=== PATIENT | female | born 1940 | race Caucasian/White ===

== ENCOUNTER 2022-02-13 10:45 | Outpatient (RCR) | payer MEDICARE, SELFPAY | END 2022-10-22 23:59 | disposition home or self-care (01) | PROVIDERS: PCP Physician Assistant; Visit Provider Physician Assistant | DX: R41.3 Other amnesia (principal); Z51.89 Encounter for other specified aftercare | CPT/HCPCS: 97165; 97535 ==

== ENCOUNTER 2022-04-20 09:57 | Emergency (ER) | payer MEDICARE, SELFPAY ==
[2022-04-20] VITALS (20 sets, daily range): BP systolic 97–137; BP diastolic 36–84; PULSE 72–122; RESP 18; TEMP 36.4; O2SAT 93–99; BMI 34.5
[2022-04-20 11:08] LABS: PCR FLU A Negative PCR FLU A (Negative); PCR FLU B Negative PCR FLU B (Negative); PCR RSV Negative PCR RSV (Negative)
[2022-04-20 11:11] LABS: SARS PCR* Negative SARS-CoV-2 (Negative)
[2022-04-20 11:20] LABS: Lactate* 1.2 mmol/L (0.5-1.9)
[2022-04-20 11:25] LABS: Basophils Absolute Auto 0.05 K/uL (0.00-0.30); Basophils Percent Auto 0.5 % (0.0-3.0); Eosinophils Absolute Auto 0.05 K/uL (0.00-0.50); Eosinophils Percent Auto 0.5 % (0.0-7.0); Hematocrit 39.3 % (33.0-51.0); Immature Granulocytes Abs Auto 0.02 K/uL (0.00-0.30); Immature Granulocytes Pct Auto 0.2 %; Lymphocytes Percent Auto 14.1 % (20-44); Mean Corpuscular HGB Conc 33 gm/dL (32-36); Mean Corpuscular Hemoglobin 30 pg (26-34); Mean Corpuscular Volume 90 fL (80-100); Monocytes Percent Auto 9.7 % (0.0-11.0); Platelet Count* 279 K/uL (140-440); RDW Coefficient of Variation % 11.8 % (11.5-15.5); Red Blood Count 4.36 m/uL (4.00-5.20); Slide Review Reflex No; White Blood Count* 9.58 K/uL (4.50-11.00)
[2022-04-20] MEDS: 0.9 % SODIUM CHLORIDE 1000 ml 1,000 ML IV ×2 (11:32→13:23)
[2022-04-20] MEDS: ACETAMINOPHEN 500 MG TABLET 1000 MG PO (11:32)
[2022-04-20] MEDS: LORazepam 2 MG/ML inj 1 MG IVP (11:34)
[2022-04-20 11:40] LABS: Albumin* 4.1 g/dL (3.3-5.0)
[2022-04-20 11:41] LABS: Chloride* 102 mmol/L (96-114); Potassium* 4.1 mmol/L (3.6-5.1); Sodium* 134 mmol/L (135-149)
[2022-04-20 11:43] LABS: Bilirubin Direct* 0.3 mg/dL (0.0-0.5); Bilirubin Total* 0.7 mg/dL (0.1-1.5); Magnesium* 1.9 mg/dL (1.5-2.6); Total Protein* 7.7 g/dL (6.0-8.3)
[2022-04-20 11:44] LABS: Alanine Aminotransferase* 21 U/L (4-35); Alkaline Phosphatase* 95 U/L (40-150); Aspartate Amino Transferase* 27 U/L (12-35); Creatinine* 1.2 mg/dL (0.5-1.5); Est. Creatinine Clearance* 31.45; Estimated Glomerular Filt Rate 46 ml/min
[2022-04-20 11:45] LABS: Blood Urea Nitrogen* 21 mg/dL (7-30); Calcium* 9.8 mg/dL (8.4-10.6); Carbon Dioxide* 26 mmol/L (20-32); Glucose* 98 mg/dL (60-115)
[2022-04-20 11:48] LABS: C Reactive Protein* 4.9 mg/dL (0.5-1.0)
[2022-04-20 15:06] LABS: Appearance Urine Slightly Cloudy (Clear); Bilirubin Urine Negative (Negative); Blood Urine 1+ (Negative); Color Urine Dark yellow (Yellow); Glucose Urine Negative (Negative); Ketones Urine Negative (Negative); Leukocyte Esterase Urine 1+ (Negative); Nitrite Urine Negative (Negative); Protein Urine 1+ (Negative); Urobilinogen Urine 0.2 (0.2-1.0); pH Urine 6.5 (5.0-8.5)
--- NOTE | 2022-04-20 15:14 | ED.GENADULT ---
HPI - General Adult General Date Seen: 04/20/22 Chief complaint: Weakness Stated complaint: Fever, aching for a week Time Seen by Provider: 04/20/22 10:30 Source: patient and family History of Present Illness HPI narrative: Patient is a 81-year-old who presents for evaluation of weakness. She says that a little over week ago she had an illness which involved nonbloody diarrhea multiple times a day for a few days. She had some mild abdominal pain at the same time which has now resolved. The diarrhea is gone as well. She had nausea but no vomiting. She just can not recover however. She feels extremely fatigued and has hard time even holding her head up. She has been trying to keep up with fluids but has found that difficult to do. She lives independently but says that she just felt too weak to function and that seems to be getting worse rather than better. This morning she says she woke up with her back feeling kind of sweaty and think she may have had a fever although she did not check her temperature. She has not had urinary symptoms, she has not had chest pain or difficulty breathing, no cough. No upper respiratory symptoms. She does have chronic back pain and says that our bed is very uncomfortable so that is bothering her quite a bit right now. Describes her health as otherwise good. Related Data Home Medications Medication Instructions Recorded Confirmed amlodipine 5 mg tablet 5 mg PO DAILY 04/20/22 04/20/22 cyclobenzaprine 5 mg tablet 5 mg PO HS PRN 04/20/22 04/20/22 gabapentin 300 mg capsule 600 mg PO BID 04/20/22 04/20/22 lisinopril 40 mg tablet 40 mg PO DAILY 04/20/22 04/20/22 pantoprazole 40 mg tablet,delayed 40 mg PO DAILY 04/20/22 04/20/22 release Allergies Allergy/AdvReac Type Severity Reaction Status Date / Time No Known Drug Allergies Allergy Verified 04/20/22 10:09 Review of Systems Status of ROS: Reports: 10 or more systems reviewed and unremarkable except as noted in History and below [facility] Social History Smoking Status: Never smoker Do you use any of these nicotine containing products: None Second hand tobacco smoke exposure: No How often do you have a drink containing alcohol: monthly or less How many standard drinks containing alcohol do you have on a typical day: 1 or 2 How often do you have six or more drinks on one occasion: Never AUDIT-C Alcohol total score: 1 Non-prescribed substance use: denies use Exam Narrative: Exam Narrative: Vital signs as noted above. In general, an alert, nontoxic elderly woman. She keeps her eyes closed throughout our conversation. Head: Normocephalic, atraumatic. Eyes: Pupils are equal reactive. Extraocular movements are full. Conjunctivae are normal. No scleral icterus. ENT: Mucous membranes are slightly dry. Throat is normal. Neck: Supple without lymphadenopathy. Heart: Tachycardic and regular. No murmur. Lungs: Clear bilaterally. No increased work of breathing, crackles or wheezes. Abdomen: Soft and nontender. No organomegaly. Extremities: Well perfused. No edema. No calf tenderness. Pulses intact. Neurologic: Patient is alert and oriented to person and place. Speech is fluent. Face is symmetric. Moves all extremities equally. Affect: Normal. Skin: Warm and dry. Well perfused. Const: Vital Signs, click to edit/add: Vital Signs - 24 hr 04/20/22 10:05 04/20/22 11:10 04/20/22 11:06 Temperature 97.5 F L Pulse Rate Pulse Rate [Right Pulse Oximeter] 122 H Respiratory Rate 18 Blood Pressure 97/36 L Blood Pressure [Ri ght Upper Arm] 137/84 Pulse Oximetry 95 95 99 [facility] 04/20/22 11:30 04/20/22 12:02 04/20/22 12:32 Temperature Pulse Rate 72 80 73 Pulse Rate [Right Pulse Oximeter] Respiratory Rate Blood Pressure 114/66 117/67 111/63 Blood Pressure [Ri ght Upper Arm] Pulse Oximetry 93 95 95 Oxygen Delivery Al thod 04/20/22 12:33 04/20/22 13:00 04/20/22 13:02 Temperature Pulse Rate 109 H 73 76 Pulse Rate [Right Pulse Oximeter] Respiratory Rate Blood Pressure 97/67 Blood Pressure [Ri ght Upper Arm] Pulse Oximetry 95 96 94 Oxygen Delivery Al thod 04/20/22 13:30 04/20/22 13:31 04/20/22 14:00 Temperature Pulse Rate 81 81 76 Pulse Rate [Right Pulse Oximeter] Respiratory Rate Blood Pressure 115/69 Blood Pressure [Ri ght Upper Arm] Pulse Oximetry 97 95 97 Oxygen Delivery Me thod 04/20/22 14:01 04/20/22 14:28 Temperature Pulse Rate 75 Pulse Rate [Right Pulse Oximeter] Respiratory Rate 18 Blood Pressure 115/67 125/76 Blood Pressure [Ri ght Upper Arm] Pulse Oximetry 96 95 Oxygen Delivery Me thod Room Air Course Course Hospital Course: We placed an IV here and gave her a L of saline. She requested a muscle relaxer for her back, I did give her some Tylenol and also give her a little Ativan. She rested quietly after that, seemed more comfortable. Her labs showed a normal white blood cell count and hemoglobin, slight left shift with 75% neutrophils, 14% lymphocytes. No significant eosinophils. Sodium was 134, potassium 4.1. Other electrolytes normal, BUN 21 and creatinine 1.2. Glucose was 98. Lactate was 1.2. Magnesium was normal. LFTs were entirely normal. CRP was mildly elevated at 4.9. TSH was normal. It took a while to get a UA. In the meantime, after her 1 L of fluid she continued to be mildly tachycardic with a heart rate of 109. She was having a little bit of fatigue still when she was ambulatory, and so we did give her a 2 L of fluid. Differential diagnosis included metabolic derangement, acidosis, dehydration, diverticulitis, infectious or ischemic colitis, myocardial infarction, pneumonia, urinary tract infection, COVID or other viral infection. Overall, I think these are all unlikely. Viral swab is negative. She does not have any ongoing abdominal pain or tenderness. Lungs are clear. White count is normal. She is not hypoxic. Troponin is 0. She does ultimately have 5-10 red cells and 10-25 white blood cells in her urine, in the absence of any squamous cells. She is not complaining of any urinary symptoms however, is not febrile and has a normal white blood cell count. I think for now, will await culture. In the meantime, she is feeling improved after the 2 L, she is ambulatory without difficulty, heart rate is down to 75. I do think symptoms are likely related to dehydration, she is feeling eager to go home which I think is reasonable. If she develops new or worsening symptoms, fevers, vomiting, significant abdominal or chest pain, she should return. Otherwise, will await urine culture, continue to work on hydration, and primary care follow-up if not continuing to improve. Vital Signs Vital signs: Initial Vital Signs Temperature 97.5 F L 04/20/22 10:05 Temperature Source Oral 04/20/22 10:05 Pulse Rate 122 H 04/20/22 10:05 Pulse Rhythm 04/20/22 10:05 Pulse Strength 3+ Normal 04/20/22 10:05 Respiratory Rate 18 04/20/22 10:05 Blood Pressure 137/84 04/20/22 10:05 Blood Pressure Mean 101 04/20/22 10:05 Blood Pressure Position Sitting 04/20/22 10:05 Pulse Oximetry 95 04/20/22 10:05 Oxygen Delivery Method 04/20/22 10:05 Vital Signs Temperature 97.5 F L 04/20/22 10:05 Pulse Rate 122 H 04/20/22 10:05 Respiratory Rate 18 04/20/22 10:05 Blood Pressure 137/84 04/20/22 10:05 Pulse Oximetry 95 04/20/22 10:05 Oxygen Delivery Method 04/20/22 10:05 Temperature 97.5 F L 04/20/22 10:05 Pulse Rate 75 04/20/22 14:01 Respiratory Rate 18 04/20/22 14:28 Blood Pressure 125/76 04/20/22 14:28 Pulse Oximetry 95 04/20/22 14:28 Oxygen Delivery Method 04/20/22 14:28 Medical Decision Making Lab Data Labs: Lab Results 04/20/22 04/20/22 04/20/22 Range/Units 10:15 11:10 11:10 WBC 9.58 (4.50-11.00) K/uL RBC 4.36 (4.00-5.20) m/uL Hgb 13.0 (12.0-16.0) gm/dL Hct 39.3 (33.0-51.0) % MCV 90 (80-100) fL MCH 30 (26-34) pg MCHC 33 (32-36) gm/dL RDW Coeff of Anais 11.8 (11.5-15.5) % Plt Count 279 (140-440) K/uL Neut % (Auto) 75.0 H (42.0-72.0) % Lymph % (Auto) 14.1 L (20-44) % [place] % (Auto) 9.7 (0.0-11.0) % Eos % (Auto) 0.5 (0.0-7.0) % Baso % (Auto) 0.5 (0.0-3.0) % Neut # (Auto) 7.20 H (1.7-7.0) K/uL Lymph # (Auto) 1.40 (0.90-2.90) K/uL [place] # (Auto) 0.90 (0.00-0.90) K/UL Eos # (Auto) 0.05 (0.00-0.50) K/uL Baso # (Auto) 0.05 (0.00-0.30) K/uL Sodium 134 L (135-149) mmol/L Potassium 4.1 (3.6-5.1) mmol/L Chloride 102 (96-114) mmol/L Carbon Dioxide 26 (20-32) mmol/L BUN 21 (7-30) mg/dL Creatinine 1.2 (0.5-1.5) mg/dL Estimated Creat Clear 31.45 Estimated GFR 46 ml/min Glucose 98 (60-115) mg/dL Lactate (0.5-1.9) mmol/L Calcium 9.8 (8.4-10.6) mg/dL Magnesium (1.5-2.6) mg/dL Total Bilirubin (0.1-1.5) mg/dL Direct Bilirubin (0.0-0.5) mg/dL AST (12-35) U/L ALT (4-35) U/L Alkaline Phosphatase (40-150) U/L C-Reactive Protein 4.9 H (0.5-1.0) mg/dL Total Protein (6.0-8.3) g/dL Albumin (3.3-5.0) g/dL TSH (0.270-4.200) uIU/mL Urine Color (Yellow) Urine Appearance (Clear) Urine pH (5.0-8.5) Ur Specific [place] (1.000-1.030) Urine Protein (Negative) Urine Glucose (UA) (Negative) Urine Ketones (Negative) Urine Blood (Negative) Urine Nitrite (Negative) Urine Bilirubin (Negative) Urine Urobilinogen (0.2-1.0) Ur Leukocyte Esterase (Negative) Urine RBC (0-2) Urine WBC (0-5) Ur Squamous Epith Cells (None-Few) Urine Bacteria (None) SARS-CoV-2 (PCR) Negative SARS-CoV-2 (Negative) Influenza Type A (PCR) Negative PCR FLU A (Negative) Influenza Type B (PCR) Negative PCR FLU B (Negative) RSV (PCR) Negative PCR RSV (Negative) POC Troponin I (0.01-0.04) ng/ml 04/20/22 04/20/22 04/20/22 Range/Units 11:10 11:10 11:10 WBC (4.50-11.00) K/uL RBC (4.00-5.20) m/uL Hgb (12.0-16.0) gm/dL Hct (33.0-51.0) % MCV (80-100) fL MCH (26-34) pg MCHC (32-36) gm/dL RDW Coeff of Anais (11.5-15.5) % Plt Count (140-440) K/uL Neut % (Auto) (42.0-72.0) % Lymph % (Auto) (20-44) % [place] % (Auto) (0.0-11.0) % Eos % (Auto) (0.0-7.0) % Baso % (Auto) (0.0-3.0) % Neut # (Auto) (1.7-7.0) K/uL Lymph # (Auto) (0.90-2.90) K/uL [place] # (Auto) (0.00-0.90) K/UL Eos # (Auto) (0.00-0.50) K/uL Baso # (Auto) (0.00-0.30) K/uL Sodium (135-149) mmol/L Potassium (3.6-5.1) mmol/L Chloride (96-114) mmol/L Carbon Dioxide (20-32) mmol/L BUN (7-30) mg/dL Creatinine (0.5-1.5) mg/dL Estimated Creat Clear Estimated GFR ml/min Glucose (60-115) mg/dL Lactate 1.2 (0.5-1.9) mmol/L Calcium (8.4-10.6) mg/dL Magnesium 1.9 (1.5-2.6) mg/dL Total Bilirubin 0.7 (0.1-1.5) mg/dL Direct Bilirubin 0.3 (0.0-0.5) mg/dL AST 27 (12-35) U/L ALT 21 (4-35) U/L Alkaline Phosphatase 95 (40-150) U/L C-Reactive Protein (0.5-1.0) mg/dL Total Protein 7.7 (6.0-8.3) g/dL Albumin 4.1 (3.3-5.0) g/dL TSH (0.270-4.200) uIU/mL Urine Color Dark yellow (Yellow) Urine Appearance Slightly Cloudy A (Clear) Urine pH 6.5 (5.0-8.5) Ur Specific [place] 1.010 (1.000-1.030) Urine Protein 1+ A (Negative) Urine Glucose (UA) Negative (Negative) Urine Ketones Negative (Negative) Urine Blood 1+ A (Negative) Urine Nitrite Negative (Negative) Urine Bilirubin Negative (Negative) Urine Urobilinogen 0.2 (0.2-1.0) Ur Leukocyte Esterase 1+ A (Negative) Urine RBC 5-10 A (0-2) Urine WBC 10-25 A (0-5) Ur Squamous Epith Cells None (None-Few) Urine Bacteria None (None) SARS-CoV-2 (PCR) (Negative) Influenza Type A (PCR) (Negative) Influenza Type B (PCR) (Negative) RSV (PCR) (Negative) POC Troponin I (0.01-0.04) ng/ml 04/20/22 04/20/22 Range/Units 11:10 11:10 WBC (4.50-11.00) K/uL RBC (4.00-5.20) m/uL Hgb (12.0-16.0) gm/dL Hct (33.0-51.0) % MCV (80-100) fL MCH (26-34) pg MCHC (32-36) gm/dL RDW Coeff of Anais (11.5-15.5) % Plt Count (140-440) K/uL Neut % (Auto) (42.0-72.0) % Lymph % (Auto) (20-44) % [place] % (Auto) (0.0-11.0) % Eos % (Auto) (0.0-7.0) % Baso % (Auto) (0.0-3.0) % Neut # (Auto) (1.7-7.0) K/uL Lymph # (Auto) (0.90-2.90) K/uL [place] # (Auto) (0.00-0.90) K/UL Eos # (Auto) (0.00-0.50) K/uL Baso # (Auto) (0.00-0.30) K/uL Sodium (135-149) mmol/L Potassium (3.6-5.1) mmol/L Chloride (96-114) mmol/L Carbon Dioxide (20-32) mmol/L BUN (7-30) mg/dL Creatinine (0.5-1.5) mg/dL Estimated Creat Clear Estimated GFR ml/min Glucose (60-115) mg/dL Lactate (0.5-1.9) mmol/L Calcium (8.4-10.6) mg/dL Magnesium (1.5-2.6) mg/dL Total Bilirubin (0.1-1.5) mg/dL Direct Bilirubin (0.0-0.5) mg/dL AST (12-35) U/L ALT (4-35) U/L Alkaline Phosphatase (40-150) U/L C-Reactive Protein (0.5-1.0) mg/dL Total Protein (6.0-8.3) g/dL Albumin (3.3-5.0) g/dL TSH 3.130 (0.270-4.200) uIU/mL Urine Color (Yellow) Urine Appearance (Clear) Urine pH (5.0-8.5) Ur Specific [place] (1.000-1.030) Urine Protein (Negative) Urine Glucose (UA) (Negative) Urine Ketones (Negative) Urine Blood (Negative) Urine Nitrite (Negative) Urine Bilirubin (Negative) Urine Urobilinogen (0.2-1.0) Ur Leukocyte Esterase (Negative) Urine RBC (0-2) Urine WBC (0-5) Ur Squamous Epith Cells (None-Few) Urine Bacteria (None) SARS-CoV-2 (PCR) (Negative) Influenza Type A (PCR) (Negative) Influenza Type B (PCR) (Negative) RSV (PCR) (Negative) POC Troponin I 0.00 L (0.01-0.04) ng/ml Discharge Plan Discharge Clinical Impression: Dehydration Patient Disposition: Home, Self-Care Condition: Improved Instructions: Dehydration (ED) Additional Instructions: Continue to work on hydration. Your urinalysis is not returned yet, but if there is anything there that we need to treat we will call you. Other labs are all very reassuring, and I suspect that now that you are rehydrated here you will feel improved at home. If you are continuing to have problems, follow-up with your primary doctor. Prescriptions: No Action amlodipine 5 mg tablet 5 mg PO DAILY cyclobenzaprine 5 mg tablet 5 mg PO HS PRN gabapentin 300 mg capsule 600 mg PO BID Label Comments: 2 caps in the am and 3 caps at night lisinopril 40 mg tablet 40 mg PO DAILY pantoprazole 40 mg tablet,delayed release (DR/EC) 40 mg PO DAILY Follow Up/Referrals: Leila Mustafa PA [Primary Care Provider] - Stand Alone Forms: [employer] Info Instructions
== END 2022-04-20 15:46 | disposition home or self-care (01) ==
PROVIDERS: Emergency Provider Emergency Medicine; PCP Physician Assistant
DX: E86.0 Dehydration (principal)
CPT/HCPCS: 36415; 80048; 80076; 81001; 83605; 83735; 84443; 84484; 85025; 86140; 87086; 87502; 87634; 87635; 93005; 94761; 96361; 96374; 99284; A9270; J2060; J7030